=== PATIENT | female | born 1985 ===

== ENCOUNTER 2017-09-26 13:25 | Emergency (ER) | payer OTHER ==
[2017-09-26 13:40] VITALS: BP 135/90; PULSE 72; RESP 20; TEMP 99; O2SAT 100
[2017-09-26] MEDS ORDERED: Naproxen 275 mg Tab PO STA (14:18)
--- NOTE | 2017-09-26 14:23 | C.PDOC ---
History Of Present Illness 31 year old female presents to the ED for evaluation of new onset of top of right foot, front of right lower leg pain since yesterday. Patient denies trauma. States symptoms are worse putting foot down. Reports swelling to top of foot. Patient is also c/o intermittent bilateral calf "tightness" x several months. Denies swelling, chest pain, dyspnea on exertion. States she is currently asymptomatic. NEW ONSET TOP OF R FOOT, FRONT OF R LOWER LEG PAIN SINCE YEST. NO TRAUMA. WORSE W POINTING FOOT DOWN. +SWELL TOP OF FOOT. ALSO CO INTERMIT B/L CALF "TIGHTNESS" X SEV MONTHS. NO SWELL, CP, LOWRY/SOB. CURRENTLY ASYMPT EXAM NAD NONTOXIC EXT REPRODUC PAIN W R FOOT PLANTAR FLEX. NO FOCAL TEND. MILD SWELL DORSAL R FOOT. NO DEFORM. NO CALF TEND, SWELL, ASYM. SKIN WNL GAIT WNL REMAINDER NEG Time Seen by Provider: 09/26/17 13:55 Chief Complaint (Nursing): Lower Extremity Problem/Injury History Per: Patient History/Exam Limitations: no limitations Onset/Duration Of Symptoms: Hrs, Intermittent Episodes Current Symptoms Are (Timing): Still Present Additional History Per: Patient Past Medical History Reviewed: Historical Data, Nursing Documentation, Vital Signs Vital Signs: Last Vital Signs Temp 99 F 09/26/17 13:38 Pulse 72 09/26/17 13:38 Resp 20 09/26/17 13:38 BP 135/90 09/26/17 13:38 Pulse Ox 100 09/26/17 15:09 - Medical History PMH: Back Problems Family History: States: Unknown Family Hx - Social History Hx Tobacco Use: No Hx Alcohol Use: Yes Hx Substance Use: No - Immunization History Hx Tetanus Toxoid Vaccination: No Hx Influenza Vaccination: No Hx Pneumococcal Vaccination: No Review Of Systems Musculoskeletal: Positive for: Leg Pain (right, lower ), Foot Pain (right), Other (calf tightness ) Physical Exam - Physical Exam Appears: Non-toxic, No Acute Distress Skin: Normal Color, Warm, Dry Head: Atraumatic, Normacephalic Eye(s): bilateral: Normal Inspection Oral Mucosa: Moist Neck: Supple Extremity: Normal ROM, Capillary Refill (less than 2 seconds ), No Deformity, No Swelling, Other (reproducible pain with right foot plantar flexion. no focal tenderness. mild swelling to dorsal right foot. no asymmetry ) Neurological/Psych: Oriented x3, Normal Speech, Normal Cognition Gait: Steady ED Course And Treatment O2 Sat by Pulse Oximetry: 100 (on RA) Pulse Ox Interpretation: Normal Progress Note: Venous Duplex Scan lower extremity. Naproxen PO administered. Disposition Counseled Patient/Family Regarding: Studies Performed, Diagnosis, Need For Followup - Disposition Referrals: YOUR,[facility]ILER ENGINEER [Other] Disposition: HOME/ ROUTINE Disposition Time: 15:08 Condition: IMPROVED Instructions: Foot Sprain (DC) Forms: [facility] (Sami), Work Excuse - Clinical Impression Clinical Impression: Right foot strain, Calf pain - Scribe Statement The provider has reviewed the documentation as recorded by the Scribe (Deanne Hernandez) Provider Attestation: All medical record entries made by the Scribe were at my direction and personally dictated by me. I have reviewed the chart and agree that the record accurately reflects my personal performance of the history, physical exam, medical decision making, and the department course for this patient. I have also personally directed, reviewed, and agree with the discharge instructions and disposition.
[2017-09-26] MEDS ORDERED: Naproxen 550 mg Tab PO ONE (14:28)
--- NOTE | 2017-09-27 10:52 | VASCLAB ---
PROCEDURE: Right Lower Extremity Venous Duplex Exam. HISTORY: PAIN, SWELLING PRIORS: None. TECHNIQUE: Right common femoral, femoral, popliteal and posterior tibial, peroneal and great saphenous veins were evaluated. Flow was assessed with color Doppler, compressibility, assessment of phasic flow and augmentation response. Report prepared by TONY Pepe FINDINGS: RIGHT: 1. Common Femoral Vein: 1.1. Compressibility - Fully compressible: Thrombus - None: Flow - Phasic: Augmentation -Normal: Reflux - None. 2. Femoral Vein: 2.1. Compressibility - Fully compressible: Thrombus - None: Flow - Phasic: Augmentation -Normal: Reflux - None. 3. Popliteal Vein: 3.1. Compressibility - Fully compressible: Thrombus - None: Flow - Phasic: Augmentation -Normal: Reflux - None. 4. Posterior Tibial Vein: 4.1. Compressibility - Fully compressible: Thrombus - None: Flow - Phasic: Augmentation -Normal: Reflux - None. 5. Peroneal Vein: 5.1. Compressibility - Fully compressible: Thrombus - None: Flow - Phasic: Augmentation -Normal: Reflux - None. 6. Great Saphenous Vein: 6.1. Compressibility - Fully compressible: Thrombus -None: Flow - Phasic: Augmentation - Normal: Reflux - None. OTHER FINDINGS: IMPRESSION: No evidence of deep or superficial vein thrombosis of the right lower extremity with excellent venous flow. Normal valve function noted of the right side. Normal venous flow noted in the left common femoral vein.
== END 2017-09-26 15:15 | disposition home or self-care (01) ==
LOC: C.ER 13:25
DX: S96.911A Strain of unspecified muscle and tendon at ankle and foot level, right foot, initial encounter (principal); X58.XXXA Exposure to other specified factors, initial encounter; M79.661 Pain in right lower leg

== ENCOUNTER 2018-05-24 10:01 | Emergency (ER) | payer OTHER ==
[2018-05-24 10:45] VITALS: BP 122/72; PULSE 92; RESP 18; TEMP 99.8; O2SAT 98
--- NOTE | 2018-05-24 13:51 | C.PDOC ---
History Of Present Illness 32 y/o female presents to the ER complaining of fever, dry cough, and body aches which have been present for the past 2 days. Patient states that she did not receive the flu vaccination this year.Denies having nausea, vomiting, and abdominal pain. Time Seen by Provider: 05/24/18 10:08 Chief Complaint (Nursing): Cough, Cold, Congestion History Per: Patient History/Exam Limitations: no limitations Onset/Duration Of Symptoms: Days Current Symptoms Are (Timing): Still Present Severity: Moderate Past Medical History Reviewed: Historical Data, Nursing Documentation, Vital Signs Vital Signs: Last Vital Signs Temp 99.8 F H 05/24/18 10:44 Pulse 92 H 05/24/18 10:44 Resp 18 05/24/18 10:44 BP 122/72 05/24/18 10:44 Pulse Ox 98 05/24/18 10:44 - Medical History PMH: Back Problems Surgical History: Family History: States: No Known Family Hx - Social History Hx Tobacco Use: No Hx Alcohol Use: Yes Hx Substance Use: No - Immunization History Hx Tetanus Toxoid Vaccination: No Hx Influenza Vaccination: No Hx Pneumococcal Vaccination: No Review Of Systems Except As Marked, All Systems Reviewed And Found Negative. Constitutional: Positive for: Fever, Malaise. Negative for: Chills Cardiovascular: Negative for: Chest Pain Respiratory: Positive for: Cough. Negative for: Shortness of Breath Physical Exam - Physical Exam Appears: Non-toxic, No Acute Distress Skin: Normal Color, Warm, Dry Head: Atraumatic, Normacephalic Eye(s): bilateral: Normal Inspection Ear(s): Bilateral: Normal Nose: Normal Oral Mucosa: Moist Throat: Normal, No Erythema, No Exudate Neck: Supple Chest: Symmetrical Cardiovascular: Rhythm Regular Respiratory: Normal Breath Sounds, No Rales, No Rhonchi, No Wheezing Neurological/Psych: Oriented x3, Normal Speech ED Course And Treatment O2 Sat by Pulse Oximetry: 98 (RA) Pulse Ox Interpretation: Normal Medical Decision Making Medical Decision Making: Plan: --Tylenol PO Disposition - Disposition Referrals: Sunitha Barth MD [Staff Provider] - Disposition: HOME/ ROUTINE Disposition Time: 10:35 Condition: GOOD Additional Instructions: JESENIA SMITH, thank you for letting us take care of you today. The emergency medical care you received today was directed at your acute symptoms. If you were prescribed any medication, please fill it and take as directed. It may take several days for your symptoms to resolve. Return to the Emergency Department if your symptoms worsen, do not improve, or if you have any other problems. Please contact your doctor or call one of the physicians/clinics you have been referred to that are listed on the Patient Visit Information form that is included in your discharge packet. Bring any paperwork you were given at discharge with you along with any medications you are taking to your follow up visit. Our treatment cannot replace ongoing medical care by a primary care provider outside of the emergency department. Thank you for allowing the [facility] team to be part of your care today. Follow up with your primary care doctor in 3-4 days for re-evaluation and further management. Prescriptions: Ibuprofen [Motrin] 600 mg PO Q6 PRN #20 tab PRN Reason: Pain, Moderate (4-7) Oseltamivir Phosphate [Tamiflu] 75 mg PO BID #10 capsule Instructions: Viral Syndrome (DC) Forms: [facility] (Nepalese), Work Excuse - Clinical Impression Clinical Impression: Influenza-like illness - Scribe Statement The provider has reviewed the documentation as recorded by the Scribe Rebecca Villalobos Provider Attestation: All medical record entries made by the Scribe were at my direction and personally dictated by me. I have reviewed the chart and agree that the record accurately reflects my personal performance of the history, physical exam, medical decision making, and the department course for this patient. I have also personally directed, reviewed, and agree with the discharge instructions and disposition.
== END 2018-05-24 10:45 | disposition home or self-care (01) ==
LOC: C.ER 10:01
DX: J11.1 Influenza due to unidentified influenza virus with other respiratory manifestations (principal)

== ENCOUNTER 2018-08-31 07:52 | Outpatient (CLI) | payer OTHER | END 2018-08-31 07:53 | disposition home or self-care (01) | LOC: C.LAB 07:52 | DX: G51.0 Bell's palsy (principal) ==